=== PATIENT | female | born 1990 | race Caucasian/White ===

== ENCOUNTER 2020-06-17 09:25 | Outpatient (CLI) | payer OTHER ==
--- NOTE | 2020-06-17 10:12 | CT ---
CT ABDOMEN AND PELVIS WITH IV CONTRAST 06/17/2020 CLINICAL INFORMATION: Constant abdominal swelling and bloating. COMPARISON: None. Technique: Multiple contiguous axial CT images are obtained through the abdomen and pelvis with IV contrast. Cor onal reformatted images are provided. FINDINGS: Lower Chest: Lung bases are clear. Vessels: Abdominal aorta is normal in caliber. Incidental note is made of a circumaortic left renal v ein. Abdomen: Portal vein:Patent Gallbladder: Within normal limits for CT imaging. Liver: within normal limits. Spleen: within normal limits. Pancreas: within normal limits. Adrenals: within normal limits. Kidneys: within normal limits. Bowel: Normal caliber. Appendix: Not visualized on this examination as the cecum extends into the pelvis, and there are mult iple adjacent structures limiting adequate evaluation of the appendix. Peritoneum: No ascites or free air; no fluid collection. Mesentery and Retroperitoneum: No enlarged mesenteric or retroperitoneal lymph nodes. Abdominal Wall: within normal limits. Pelvis: Reproductive Organs: No pelvic masses. Bladder: within normal limits. Bones: No suspicious lytic or sclerotic osseous lesions. IMPRESSION: No acute findings in the abdomen or pelvis.
[2020-06-17] MEDS ORDERED: Iopamidol-370 76% 500 ML 1 ML ONE (14:04)
== END 2020-06-17 09:26 | disposition home or self-care (01) ==
LOC: BICCT 09:25
PROVIDERS: ATTEND Internal Medicine Gastroenterology
DX: R10.30 Lower abdominal pain, unspecified (principal); R14.0 Abdominal distension (gaseous)
CPT/HCPCS: 74177; Q9967